=== PATIENT | female | born 1995 | race Two or more races ===

== ENCOUNTER 2016-07-12 22:56 | Emergency (ER) | payer MEDICAID ==
[~2016-07-12] VITALS: Ht 154.9 cm; Wt 117.9 kg
[~2016-07-12 22:56] MED LIST: METF500T4 PO
[2016-07-13] MEDS ORDERED: KETOROLAC TROMETHAMINE 15 MG/ML VIAL ONE (00:27)
[2016-07-13] MEDS ORDERED: IV SET PRIMARY 1 EA INFUS.SET MC ONE (00:27)
[2016-07-13] MEDS ORDERED: IV NS 0.9% 1,000 ML ONE (00:27)
[2016-07-13] MEDS ORDERED: IV NS 0.9% 1,000 ML BAG IV ONE (00:30)
[2016-07-13] MEDS ORDERED: KETOROLAC TROMETHAMINE INJ 30 MG/ML VIAL IV ONE (00:30)
[2016-07-13 00:36] LABS: BASOPHILS % (AUTO) 0.4 % (0.0-2.0); DIFF TOTAL % 100 %; EOSINOPHILS # (AUTO) 0.2 /CMM (0.0-0.7); EOSINOPHILS % (AUTO) 2.1 % (0.0-6.0); HEMATOCRIT 37 % (33-45); HEMOGLOBIN 12.2 g/dL (11.5-14.8); LYMPHOCYTES % (AUTO) 33.2 % (20.0-44.0); MEAN CORPUSCULAR HEMOGLOBIN 29 PG (26.0-33.0); MEAN CORPUSCULAR HGB CONC 33 g/dl (31.0-36.0); MEAN CORPUSCULAR VOLUME 87 fL (82-100); MONOCYTES # (AUTO) 0.7 /CMM (0.1-1.30); NEUTROPHILS % (AUTO) 56.3 % (43.0-81.0); PLATELET COUNT (AUTO) 219 /CMM (150-450); RED BLOOD CELL COUNT(AUTO) 4.23 MIL/uL (4.0-5.2); WHITE BLOOD COUNT (AUTO) 8.9 K/uL (4.3-11.0)
[2016-07-13 00:45] LABS: CALCIUM, SERUM 8.2 mg/dL (8.5-10.1); CREATININE 0.8 mg/dL (0.6-1.3); POTASSIUM 3.9 mmol/L (3.5-5.1)
[2016-07-13 00:50] LABS: KETONES,URINE NEGATIVE (NEGATIVE); LEUKOCYTE ESTERASE ,URINE NEGATIVE (NEGATIVE)
[2016-07-13 00:52] LABS: PREGNANCY TEST URINE QUAL NEGATIVE (NEGATIVE)
[2016-07-13 00:56] LABS: ADD UA MICROSCOPIC YES
[2016-07-13 01:00] LABS: ADD URINE CULTURE NO; MUCUS,URINE Moderate /LPF (None Seen); RBC,URINE 0-2 /HPF (0-2); WBC,URINE 0-2 /HPF (0-3)
[2016-07-13 04:09] VITALS: BP 120/64
== END 2016-07-13 04:10 | disposition home or self-care (01) ==
LOC: ER 23:02
DX: M79.1 Myalgia (principal); M54.5 Low back pain; R10.30 Lower abdominal pain, unspecified
CPT/HCPCS: 36415; 76856; 80048; 81001; 84703; 85025; 96361; 96374; 99285; A4606; J1885; J7030; Z7610; 81000-TC

== ENCOUNTER 2016-07-14 21:26 | Emergency (ER) | payer MEDICAID | END 2016-07-14 22:21 | disposition left against medical advice (07) | LOC: ER 21:29 | DX: Z53.21 Procedure and treatment not carried out due to patient leaving prior to being seen by health care provider (principal) ==

== ENCOUNTER 2016-07-17 20:48 | Emergency (ER) | payer MEDICAID ==
[~2016-07-17] VITALS: Ht 157.5 cm; Wt 104.3 kg
[2016-07-17 20:50] VITALS: BP 159/80
[2016-07-17] MEDS ORDERED: ALBUTEROL FS 2.5 MG/3 ML VIAL.NEB NEB ONE (22:30)
[2016-07-17] MEDS ORDERED: ALBUTEROL FS 2.5 MG/3 ML VIAL.NEB ONE (22:49)
== END 2016-07-17 23:33 | disposition home or self-care (01) ==
LOC: ER 20:48
DX: J06.9 Acute upper respiratory infection, unspecified (principal); J42 Unspecified chronic bronchitis
CPT/HCPCS: 94640; 99283; A4606; Z7610

== ENCOUNTER 2017-02-05 17:01 | Emergency (ER) | payer MEDICAID ==
[~2017-02-05] VITALS: Ht 157.5 cm; Wt 122.5 kg
[2017-02-05 17:20] VITALS: BP 129/80
== END 2017-02-05 18:30 | disposition left against medical advice (07) ==
LOC: ER 17:04
DX: Z53.21 Procedure and treatment not carried out due to patient leaving prior to being seen by health care provider (principal)
CPT/HCPCS: A4606; Z7610

== ENCOUNTER 2017-05-01 18:04 | Emergency (ER) | payer MEDICAID ==
[~2017-05-01] VITALS: Ht 167.6 cm; Wt 122.5 kg
[2017-05-01 18:04] VITALS: BP 145/100
[2017-05-01] MEDS ORDERED: LORAZEPAM INJ 2 MG/ML VIAL ONE (18:15)
[2017-05-01] MEDS: LORAZEPAM INJ 2 MG/ML VIAL IM ONE (18:20)
== END 2017-05-01 18:40 | disposition home or self-care (01) ==
LOC: ER 18:06
DX: F41.9 Anxiety disorder, unspecified (principal); J45.909 Unspecified asthma, uncomplicated; J44.9 Chronic obstructive pulmonary disease, unspecified
CPT/HCPCS: 96372; 99283; A4606; J2060; Z7610

== ENCOUNTER 2018-02-02 13:45 | Emergency (ER) | payer MEDICAID ==
[~2018-02-02] VITALS: Ht 154.9 cm; Wt 141.1 kg
[~2018-02-02 13:45] MED LIST changes: +METF-440 PO; -METF500T4 PO
--- NOTE | 2018-02-02 13:45 | NUR ---
LOW BACK PAIN X 4 DAYS, AGGRAVATED BY MOVEMENT. PT AAOX3, VSS. DENIES ABD PAIN, N/V/D, CP, SOB @ THIS TIME. PT SEEN & EVAL'D BY DELILAH DOMINGO. WILL CONT TO MONITOR.
[2018-02-02 14:54] LABS: APPEARANCE,URINE Clear (CLEAR); BILIRUBIN,URINE Negative (NEGATIVE); BLOOD, URINE Large Ery/uL (NEGATIVE); COLOR,URINE Yellow (YELLOW); KETONES,URINE Negative (NEGATIVE); LEUKOCYTE ESTERASE ,URINE Negative (NEGATIVE); NITRITE, URINE Negative (NEGATIVE); PROTEIN,URINE Negative (NEGATIVE); UGLUCOSE Negative (NEGATIVE); UROBILINOGEN,URINE 0.2 EU/dL (0.2)
[2018-02-02] MEDS ORDERED: KETOROLAC TROMETHAMINE INJ 60 MG/2 ML VIAL IM ONE (15:01)
[2018-02-02] MEDS: KETOROLAC TROMETHAMINE INJ 60 MG/2 ML VIAL IM ONE (15:05)
[2018-02-02 15:13] LABS: BACTERIA,URINE Few /HPF (None Seen); RBC,URINE 21-50 /HPF (0-2); SQUAMOUS EPITHELIAL CELL,UR Few /HPF (None Seen); WBC,URINE 0-2 /HPF (0-3)
[2018-02-02 16:27] LABS: BASOPHILS % (AUTO) 0.4 % (0.0-2.0); EOSINOPHILS % (AUTO) 0.5 % (0.0-6.0); HEMATOCRIT 39 % (33-45); LYMPHOCYTES # (AUTO) 1.6 /CMM (0.8-4.8); LYMPHOCYTES % (AUTO) 19.6 % (20.0-44.0); MEAN CORPUSCULAR HGB CONC 34 g/dl (31.0-36.0); MEAN CORPUSCULAR VOLUME 86 fL (82-100); MONOCYTES # (AUTO) 0.6 /CMM (0.1-1.30); MONOCYTES % (AUTO) 7.3 % (2.0-12.0); NEUTROPHILS % (AUTO) 72.2 % (43.0-81.0); PLATELET COUNT (AUTO) 252 /CMM (150-450); RDW COEFFICIENT OF VARIATION 12.4 (11.5-15.0); RED BLOOD CELL COUNT(AUTO) 4.47 MIL/uL (4.0-5.2); WHITE BLOOD COUNT (AUTO) 8.2 K/uL (4.3-11.0)
[2018-02-02 17:00] LABS: CALCIUM, SERUM 8.1 mg/dL (8.5-10.1); CREATININE 0.8 mg/dL (0.6-1.3); POTASSIUM 3.7 mmol/L (3.5-5.1)
[2018-02-02 17:11] LABS: ALBUMIN 3.5 g/dL (3.4-5.0); BILIRUBIN,DIRECT 0.1 mg/dL (0.0-0.2); BILIRUBIN,TOTAL 0.6 mg/dL (0.2-1.0); TOTAL PROTEIN, SERUM 7.2 g/dL (6.4-8.2)
--- NOTE | 2018-02-02 17:32 | NUR ---
Patient discharged to home in stable condition. Written and verbal after care instructions given. Patient verbalizes understanding of instruction.
[2018-02-02 17:37] VITALS: BP 124/72
== END 2018-02-02 17:38 | disposition home or self-care (01) ==
LOC: ER 13:51
DX: M54.5 Low back pain (principal); N83.201 Unspecified ovarian cyst, right side; F41.9 Anxiety disorder, unspecified; J44.9 Chronic obstructive pulmonary disease, unspecified; Z79.84 Long term (current) use of oral hypoglycemic drugs
CPT/HCPCS: 36415; 76856; 80048; 80076; 81001; 83690; 84703; 85025; 96372; 99285; A4606; J1885; Z7610; 81000-TC